=== PATIENT | male | born 1970 | race Caucasian/White ===

== ENCOUNTER → 2021-10-18 | Emergency (ER) | payer MEDICAID, SELFPAY ==
[~2021-10-18] VITALS: Ht 167.6 cm; Wt 65.8 kg
[2021-10-18 22:18] VITALS: BP_SYST 112
--- NOTE | 2021-10-18 22:35 | NUR ---
Patient does not wish to proceed with medical care recommended by Dr Fall. Patient given information related to possible complications, up to and including , which could occur as a result of leaving hospital at this time. Patient verbalizes understanding of risks involved leaving against medical advice. Patient has signed AMA form.
== END | disposition left against medical advice (07) ==
LOC: SED 22:18
DX: T40.1X1A Poisoning by heroin, accidental (unintentional), initial encounter (principal); Y92.89 Other specified places as the place of occurrence of the external cause

== ENCOUNTER 2022-07-27 21:56 | Emergency (ER) | payer MEDICAID ==
[~2022-07-27] VITALS: Ht 172.7 cm; Wt 108.9 kg
[2022-07-27 22:29] VITALS: BP_SYST 99
--- NOTE | 2022-07-27 23:07 | NUR ---
Pt brought by self, A&Ox3, pt presents to ER with poss abscess on R upper arm, pt afebrile, Hx of diabetes, VSS, will cont to monitor.
--- NOTE | 2022-07-27 23:25 | NUR ---
ER at bedside examining patient.
--- NOTE | 2022-07-27 23:29 | NUR ---
Patient to ER bed 2 to gown for evaluation. Side rails up. Report given to Katherin TREVINO(elena).
[2022-07-27] MEDS ORDERED: LIDOCAINE 1% 10 MG/ML, 20 ML MDV INJ ONE (23:45)
[2022-07-28] MEDS ORDERED: CEPH-548 PO (00:16)
[2022-07-28] MEDS ORDERED: SULF1TAB48 PO (00:17)
--- NOTE | 2022-07-28 00:24 | NUR ---
I&D Procedure done by Dr Chavez SCHULTZ using sterile technique. Lidocaine 1% used. Wound packed with steri strip . Adaptic, 4x4 and sierra to wound. Wound care discussed w/ patient. Pt tolerated procedure well.
--- NOTE | 2022-07-28 00:29 | NUR ---
Patient does not wish to proceed with medical care recommended by MD Byrne. Patient given information related to possible complications, up to and including , which could occur as a result of leaving hospital at this time. Patient verbalizes understanding of risks involved leaving against medical advice. Patient has signed AMA form.
--- NOTE | 2022-07-28 00:33 | NUR ---
PHONE NUMBER OF FRIEND GIVEN FOR ADAN [phone]. 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 PT INFORMED
== END 2022-07-28 00:30 | disposition left against medical advice (07) ==
LOC: SED 21:56
DX: L02.413 Cutaneous abscess of right upper limb (principal); L03.113 Cellulitis of right upper limb; E11.9 Type 2 diabetes mellitus without complications; Z79.899 Other long term (current) drug therapy
CPT/HCPCS: 99284; 10060; 82962; J2001